=== PATIENT | female | born 1945 | race Caucasian/White ===

== ENCOUNTER 2016-06-01 18:43 | Emergency (ER) | payer OTHER ==
[~2016-06-01 18:43] MED LIST: C25 PO; C5 PO; KLOR-CON M2020 MEQ PO; L20 PO; PHENTERMINE30 MG OR; PRISTIQ50 MG OR; SPIRO50 PO; X5 PO
[2016-06-01 19:26] LABS: BASOPHILS ABSOLUTE 0.05 10/3/uL (0.0-0.16); EOSINOPHILS 4.9 %; EOSINOPHILS ABSOLUTE 0.24 10/3/uL (0.0-0.53); HEMOGLOBIN 14.2 g/dL (12.0-16.0); IMMATURE GRANULOCYTES 0.2 %; IMMATURE GRANULOCYTES ABSOLUTE 0.01 10/3/uL (0.0-0.11); LYMPHOCYTES 46.9 %; LYMPHOCYTES ABSOLUTE 2.29 10/3/uL (0.67-4.30); MEAN CORPUS HGB CONC 32.8 g/dL (32.0-36.0); MEAN CORPUSCULAR HEMOGLOB 33.3 pg (26.0-34.0); MEAN PLATELET VOLUME 10.3 fL (9.2-13.0); MONOCYTES 6.8 %; MONOCYTES ABSOLUTE 0.33 10/3/uL (0.21-1.20); NEUTROPHILS 40.2 %; NEUTROPHILS ABSOLUTE 1.96 10/3/uL (2.02-8.40); PLATELET COUNT 204 10/3/uL (150-400); RBC DISTRIBUTION WIDTH 12.7 % (12.0-16.0); RED CELL COUNT 4.26 10/6/uL (4.0-5.6)
[2016-06-01 19:27] LABS: ER CBC TAT 0 Hrs 09 Mins; HEMATOCRIT 43.3 % (36.0-48.0); MANUAL DIFF NO %; MEAN CORPUSCULAR VOLUME 101.6 fL (80-100); WHITE BLOOD CELLS 4.9 10/3/uL (4.5-10.5)
[2016-06-01 19:44] LABS: A/G RATIO 0.9 (0.7-1.9); ALBUMIN 3.6 G/DL (3.5-5.0); ALKALINE PHOSPHATASE 76 U/L (45-117); BUN (BLOOD UREA NITROGEN) 15 MG/DL (6-23); CALCIUM, SERUM 9.1 MG/DL (8.5-10.4); CHLORIDE, SERUM 106 MMOL/L (96-112); CO2 (CARBON DIOXIDE) 27 MMOL/L (24-34); CREATININE 1.08 MG/DL (0.55-1.02); GFR AFRICAN AMERICAN 61 ML/MIN (>=60); GFR NON AFRICAN AMERICAN 52 ML/MIN (>=60); GLOBULIN 4.1 G/DL (2.5-4.1); GLUCOSE, SERUM 148 MG/DL (60-99); POTASSIUM, SERUM 4.4 MMOL/L (3.5-5.3); SGOT(AST) 15 U/L (5-40); SGPT(ALT) 20 U/L (5-65); SODIUM, SERUM 140 MMOL/L (135-148); TOTAL BILIRUBIN 0.2 MG/DL (0-1.2); TOTAL PROTEIN 7.7 G/DL (6.0-8.5)
== END 2016-06-02 02:08 | disposition home or self-care (01) ==
LOC: ER 18:43
PROVIDERS: Emergency Medicine
DX: R06.00 Dyspnea, unspecified (principal); Z85.3 Personal history of malignant neoplasm of breast; Z79.01 Long term (current) use of anticoagulants
CPT/HCPCS: 71020; 71275; 80053; 85025; 87040; 93005; 99285; Q9967

== ENCOUNTER 2016-06-06 13:09 | Inpatient (IN) | payer OTHER ==
--- NOTE | ~2016-06-06 | DS ---
Discharge Summary [facility] [address] [place]. [address] NAME: HAKEEM RAJAN : 47 STATUS : DIS IN PAT#: [id number] AGE: 70 ADM/REG DATE : 06/06/16 MR#: [id number] REPORT SERV DATE: 06/11/16 DICTATED BY: RANI SANDERS DATE: 06/10/16 REPORT STATUS : Draft TRANSCRIBED BY: MODL DATE: 06/10/16 ADMISSION DATE: 06/06/2016 DISCHARGE DATE: 06/10/2016 The patient is a 70-year-old female with a history of hypertension, morbid obesity, CKD stage 3, who was a direct admit from her primary care's office for worsening shortness of breath. For further details, please refer to H and P dictated by Dr. Sanders on 06/06/2016. HOSPITAL COURSE: Upon presentation to the hospital, the patient was admitted on the Hospitalist Service. The patient had an extensive cardiac workup, which included transthoracic echocardiography and myocardial perfusion stress test. Both studies were normal. The patient remained hemodynamically stable. Plan was to discharge patient on 06/08/2016, however, the patient was noted to acutely have change in mental status. Stat CT scan was negative. Based on history and symptomatology, it was concluded the patient had an absence seizure. She was subsequently started on Keppra 500 mg b.i.d. The patient has remained hemodynamically stable. Given resolution of her presenting symptoms during completion of a cardiac workup which is negative. The patient will be discharged to follow up with her primary care physician. Plan has been discussed with patient who voices understanding and is agreeable with this plan. DISCHARGE DIAGNOSES: 1. Seizure disorder, most likely absence. 2. Acute kidney injury. 3. Altered mental status. 4. Chronic kidney disease stage 3. 5. Morbid obesity. 6. History of anxiety. 7. History of pulmonary embolism. DISCHARGE EXAM: VITAL SIGNS: Blood pressure 110/53, pulse of 56, respirations 17, O2 saturation 96% on room air. GENERAL: The patient sitting in chair, in no acute distress, appears stated age. HEENT: Normocephalic, atraumatic. Extraocular motors intact. Moist oral mucosa. Anicteric sclerae. Pupils round and reactive to light and accommodation. NECK: Full. Trachea midline and symmetric. No thyromegaly is noted. CHEST: Nontender to palpation. CARDIOVASCULAR: Regular rate and rhythm, S1, S2. I did not appreciate any murmurs, rubs, or gallops. LUNGS: Normal breath sounds. Lungs are clear to auscultation bilaterally. ABDOMEN: Obese. Positive bowel sounds. Nontender. Nondistended. EXTREMITIES: Complaining for cyanotic changes, however, no clubbing or edema. DISCHARGE MEDICATIONS: 1. Xanax 1 mg p.o. daily. 2. Atorvastatin 20 mg p.o. daily. 3. Combigan ophthalmic solution 1 drop ophthalmic daily. Discharge Summary [place] [id number] [facility] [place]. [address] NAME: HAKEEM RAJAN : 47 STATUS : DIS IN PAT#: [id number] AGE: 70 ADM/REG DATE : 06/06/16 MR#: [id number] REPORT SERV DATE: 06/11/16 DICTATED BY: RANI SANDERS DATE: 06/10/16 REPORT STATUS : Draft TRANSCRIBED BY: ALPA DATE: 06/10/16 4. Wellbutrin 150 mg p.o. twice a day. 5. Vitamin B12 1500 mg p.o. daily. 6. Celexa 40 mg p.o. daily. 7. Xalatan 1 drop ophthalmic at bedtime. 8. Xarelto 20 mg p.o. daily. 9. Spironolactone 100 mg p.o. twice a day. 10.Keppra 500 mg p.o. twice a day. IMAGING: Brain CT without contrast. Impression, no acute intracranial abnormality. No chronic microvascular white matter ischemic changes. The patient had a transthoracic echo on 06/06/2016, with normal findings. The patient had myocardial perfusion imaging on 06/08/2016 with normal findings. DISPOSITION: The patient will be discharged home. ACTIVITY: As tolerated. DIET: Cardiac diet. Greater than 30 minutes was spent on patient counseling, writing prescription, coordinating discharge, medication reconciliation, dictation of note. MALINDA/ALPA Rani Sanders MD / [id number] CC: MD Taylor Cote M.D.
--- NOTE | ~2016-06-06 | HP ---
History And Physical [place] [address] [place]. [address] NAME: HAKEEM RAJAN : 47 STATUS : ADM IN [facility]#: [id number] AGE: 70 ADM/REG DATE : 06/06/16 MR#: [id number] REPORT SERV DATE: 06/06/16 DICTATED BY: RANI SANDERS DATE: 06/06/16 REPORT STATUS : Draft TRANSCRIBED BY: MODL DATE: 06/06/16 DATE OF ADMISSION: 06/06/2016 HISTORY OF PRESENT ILLNESS: Ms Rajan is a 70-year-old female with a history of hypertension, morbid obesity, CKD stage III, and anxiety disorder who was transferred as a direct admit from her primary care physician's office because of a worsening shortness of breath. The patient states that she has had worsening shortness of breath for the past two weeks and states her symptoms started over a month ago. She noted that she was becoming more dyspneic with performing her activities of daily living. States that symptoms have progressively worsened and states that in the last two weeks that she has had significant shortness of breath with minimal exertion. She also reports that within the past two weeks that she has had a worsening orthopnea, stating that she has had to increase the pillow that she uses from one to three. She denies any chest pain or any palpitations. She does not report any history of paroxysmal nocturnal dyspnea. She also reports a decrease in exercise tolerance stating that she is only able to move a few feet before becoming severely short of breath and has to sit on her walker. She denies any headaches, light lightheadedness, reports occasional dizziness, but with no syncopal episodes. Denies any fevers, chills, or sick contacts. REVIEW OF SYSTEMS: 14-point review of system was performed. All systems were negative except as noted in the HPI. PAST MEDICAL HISTORY: Breast cancer, diagnosed in 2008, recurrent breast cancer in 2010, pulmonary embolism in 2004, anxiety disorder, and depression. PAST SURGICAL HISTORY: 1. Panniculectomy. 2. Hysterectomy. 3. Eye surgery. FAMILY HISTORY: Significant for diabetes, coronary artery disease, and asthma. PAST SOCIAL HISTORY: The patient currently lives at home alone. She has a remote smoking history, stating that was she smoked over 40 years ago and states that during the time that she was smoking she was not a heavy smoker. She was just experimenting with tobacco. She denies any illicit drug use. States that alcohol use, she used wine on recommendation of her physician, but has since stopped all alcohol use. ALLERGIES: THE PATIENT REPORTS NO KNOWN DRUG ALLERGIES. PHYSICAL EXAMINATION: VITAL SIGNS: On presentation, blood pressure 167/74 with a pulse of 79, respirations 20, O2 saturation 98% on 2 L nasal cannula, temperature 97.4. GENERAL: The patient is lying in bed. Appears morbidly obese. In no acute distress. HEENT: Normocephalic, atraumatic. Extraocular motors intact. Oral mucosa moist. History And Physical [address] [address] NAME: HAKEEM RAJAN : 47 STATUS : ADM IN [facility]#: [id number] AGE: 70 ADM/REG DATE : 06/06/16 MR#: [id number] REPORT SERV DATE: 06/06/16 DICTATED BY: RANI SANDERS DATE: 06/06/16 REPORT STATUS : Draft TRANSCRIBED BY: ALPA DATE: 06/06/16 NECK: Full neck. Trachea midline and symmetric. No JVD noted. CHEST: Nontender to palpation. CARDIOVASCULAR: Regular rate and rhythm. S1, S2. I do not appreciate any murmurs. LUNGS: Anterior lung patel are clear to auscultation bilaterally given the patient's body habitus and having difficulty sitting up for proper lung exam. ABDOMEN: Obese, nontender, nondistended. EXTREMITIES: No edema, no clubbing noted. LABS: No labs available at this time. ASSESSMENT AND PLAN: 1. Congestive heart failure. The patient has symptoms concerning for congestive heart failure. She also has a history of obstructive sleep apnea, has not been able to get a CPAP which may be the etiology of her clinical picture consistent with heart failure. We will start the patient on IV Lasix. We will obtain a TTE, order BNP, and other labs. We will order a stress test to evaluate her severe dyspnea. 2. Hypertension, uncontrolled. We will start the patient on lisinopril 10 mg p.o. daily. 3. Morbid obesity. Body mass index of 53.8, we will monitor. 4. Chronic kidney disease stage III, stable. 5. Anxiety disorder, stable after home medications. We will continue home medications this admission. 6. Depression, stable. Continue home medications. 7. A history of pulmonary embolism, currently on Xarelto. We will continue medications. MALINDA/ALPA Rani Sanders MD / [id number] CC: MD Taylor Cote M.D.
[2016-06-06] MEDS ORDERED: XARELTO20 MG PO (14:29)
[2016-06-06] MEDS ORDERED: SPIR100 PO (14:29)
[2016-06-06] MEDS ORDERED: XANAX1 MG PO (14:30)
[2016-06-06] MEDS ORDERED: 8 HOUR650 MG PO (14:31)
[2016-06-06] MEDS ORDERED: CELEXA40 MG PO (14:32)
[2016-06-06] MEDS ORDERED: CYANO1000T PO (14:32)
[2016-06-06] MEDS ORDERED: WELLSR150 PO (14:32)
[2016-06-06] MEDS ORDERED: PROAIR HFA PO (14:33)
[2016-06-06] MEDS ORDERED: LIPITOR20 PO (14:33)
[2016-06-06] MEDS ORDERED: COMBIGAN0.2 MG/0.5 OPH (14:34)
[2016-06-06] MEDS ORDERED: FASLODEX IM (14:34)
[2016-06-06] MEDS ORDERED: XALAT OPH (14:34)
[2016-06-06] MEDS ORDERED: SYMBICORT 160/41 INH PO (14:48)
[2016-06-06 18:05] LABS: BASOPHILS ABSOLUTE 0.05 10/3/uL (0.0-0.16); EOSINOPHILS 4.3 %; EOSINOPHILS ABSOLUTE 0.22 10/3/uL (0.0-0.53); HEMATOCRIT 39.5 % (36.0-48.0); HEMOGLOBIN 12.7 g/dL (12.0-16.0); LYMPHOCYTES 51.8 %; LYMPHOCYTES ABSOLUTE 2.64 10/3/uL (0.67-4.30); MEAN CORPUS HGB CONC 32.2 g/dL (32.0-36.0); MEAN CORPUSCULAR HEMOGLOB 32.2 pg (26.0-34.0); MEAN CORPUSCULAR VOLUME 100.3 fL (80-100); MEAN PLATELET VOLUME 9.7 fL (9.2-13.0); MONOCYTES 7.5 %; MONOCYTES ABSOLUTE 0.38 10/3/uL (0.21-1.20); NEUTROPHILS 35.4 %; NEUTROPHILS ABSOLUTE 1.81 10/3/uL (2.02-8.40); PLATELET COUNT 169 10/3/uL (150-400); RBC DISTRIBUTION WIDTH 12.5 % (12.0-16.0); RED CELL COUNT 3.94 10/6/uL (4.0-5.6); WHITE BLOOD CELLS 5.1 10/3/uL (4.5-10.5)
[2016-06-06 18:08] LABS: MANUAL DIFF NO %
[2016-06-06 18:24] LABS: B NATRIURETIC PEPTIDE (BNP) 9.1 PG/ML (< 100.0)
[2016-06-06 18:32] LABS: A/G RATIO 1.1 (0.7-1.9); ALBUMIN 3.4 G/DL (3.5-5.0); ALKALINE PHOSPHATASE 71 U/L (45-117); BUN (BLOOD UREA NITROGEN) 15 MG/DL (6-23); CALCIUM, SERUM 8.8 MG/DL (8.5-10.4); CHLORIDE, SERUM 105 MMOL/L (96-112); CO2 (CARBON DIOXIDE) 30 MMOL/L (24-34); CREATININE 1.07 MG/DL (0.55-1.02); FERRITIN 73 NG/ML (8-252); FREE T4 0.82 NG/DL (0.76-1.46); GFR AFRICAN AMERICAN 61 ML/MIN (>=60); GFR NON AFRICAN AMERICAN 53 ML/MIN (>=60); GLUCOSE, SERUM 124 MG/DL (60-99); IRON BINDING CAPACITY 375 MCG/DL (225-410); IRON, SERUM 70 MCG/DL (35-150); PHOSPHORUS, SERUM 3.6 MG/DL (2.5-4.5); SGOT(AST) 9 U/L (5-40); SGPT(ALT) 15 U/L (5-65); SODIUM, SERUM 143 MMOL/L (135-148); TOTAL BILIRUBIN 0.3 MG/DL (0-1.2); TOTAL PROTEIN 6.6 G/DL (6.0-8.5)
[2016-06-06 18:35] LABS: GLOBULIN 3.2 G/DL (2.5-4.1)
[2016-06-06 21:10] LABS: GLYCOHEMOGLOBIN (HbA1c) 6.1 % (4.7-6.1)
[2016-06-07 05:44] LABS: BASOPHILS 0.7 %; BASOPHILS ABSOLUTE 0.04 10/3/uL (0.0-0.16); EOSINOPHILS 4.4 %; EOSINOPHILS ABSOLUTE 0.25 10/3/uL (0.0-0.53); HEMATOCRIT 40.1 % (36.0-48.0); HEMOGLOBIN 13.1 g/dL (12.0-16.0); LYMPHOCYTES 47.2 %; LYMPHOCYTES ABSOLUTE 2.66 10/3/uL (0.67-4.30); MEAN CORPUS HGB CONC 32.7 g/dL (32.0-36.0); MEAN CORPUSCULAR HEMOGLOB 32.8 pg (26.0-34.0); MEAN CORPUSCULAR VOLUME 100.5 fL (80-100); MEAN PLATELET VOLUME 10.4 fL (9.2-13.0); MONOCYTES 8.5 %; MONOCYTES ABSOLUTE 0.48 10/3/uL (0.21-1.20); NEUTROPHILS 39.2 %; NEUTROPHILS ABSOLUTE 2.21 10/3/uL (2.02-8.40); PLATELET COUNT 194 10/3/uL (150-400); RBC DISTRIBUTION WIDTH 12.7 % (12.0-16.0); RED CELL COUNT 3.99 10/6/uL (4.0-5.6); WHITE BLOOD CELLS 5.6 10/3/uL (4.5-10.5)
[2016-06-07 05:52] LABS: MANUAL DIFF NO %
[2016-06-07 07:32] LABS: ALBUMIN 3.4 G/DL (3.5-5.0); BUN (BLOOD UREA NITROGEN) 15 MG/DL (6-23); CHLORIDE, SERUM 101 MMOL/L (96-112); CO2 (CARBON DIOXIDE) 30 MMOL/L (24-34); GLUCOSE, SERUM 115 MG/DL (60-99); POTASSIUM, SERUM 3.9 MMOL/L (3.5-5.3); SODIUM, SERUM 141 MMOL/L (135-148)
[2016-06-07 08:03] LABS: A/G RATIO 0.9 (0.7-1.9); ALKALINE PHOSPHATASE 71 U/L (45-117); CREATININE 1.17 MG/DL (0.55-1.02); GFR AFRICAN AMERICAN 55 ML/MIN (>=60); GFR NON AFRICAN AMERICAN 48 ML/MIN (>=60); GLOBULIN 3.6 G/DL (2.5-4.1); SGOT(AST) 11 U/L (5-40); SGPT(ALT) 15 U/L (5-65); TOTAL BILIRUBIN 0.3 MG/DL (0-1.2)
[2016-06-08 08:02] LABS: BASOPHILS 0.9 %; BASOPHILS ABSOLUTE 0.06 10/3/uL (0.0-0.16); EOSINOPHILS 4.4 %; EOSINOPHILS ABSOLUTE 0.31 10/3/uL (0.0-0.53); HEMATOCRIT 38.6 % (36.0-48.0); HEMOGLOBIN 12.9 g/dL (12.0-16.0); IMMATURE GRANULOCYTES 0.1 %; IMMATURE GRANULOCYTES ABSOLUTE 0.01 10/3/uL (0.0-0.11); LYMPHOCYTES 43.9 %; LYMPHOCYTES ABSOLUTE 3.07 10/3/uL (0.67-4.30); MEAN CORPUS HGB CONC 33.4 g/dL (32.0-36.0); MEAN CORPUSCULAR HEMOGLOB 33.4 pg (26.0-34.0); MEAN PLATELET VOLUME 10.3 fL (9.2-13.0); MONOCYTES 9.2 %; MONOCYTES ABSOLUTE 0.64 10/3/uL (0.21-1.20); NEUTROPHILS 41.5 %; PLATELET COUNT 186 10/3/uL (150-400); RBC DISTRIBUTION WIDTH 12.5 % (12.0-16.0); RED CELL COUNT 3.86 10/6/uL (4.0-5.6)
[2016-06-08 08:08] LABS: MANUAL DIFF NO %
[2016-06-08 08:15] LABS: A/G RATIO 0.8 (0.7-1.9); ALBUMIN 3.1 G/DL (3.5-5.0); ALKALINE PHOSPHATASE 70 U/L (45-117); BUN (BLOOD UREA NITROGEN) 15 MG/DL (6-23); CALCIUM, SERUM 8.7 MG/DL (8.5-10.4); CHLORIDE, SERUM 104 MMOL/L (96-112); CO2 (CARBON DIOXIDE) 28 MMOL/L (24-34); GFR AFRICAN AMERICAN 59 ML/MIN (>=60); GFR NON AFRICAN AMERICAN 51 ML/MIN (>=60); GLOBULIN 3.8 G/DL (2.5-4.1); GLUCOSE, SERUM 142 MG/DL (60-99); POTASSIUM, SERUM 3.9 MMOL/L (3.5-5.3); SGOT(AST) 10 U/L (5-40); SGPT(ALT) 14 U/L (5-65); SODIUM, SERUM 141 MMOL/L (135-148); TOTAL BILIRUBIN 0.3 MG/DL (0-1.2); TOTAL PROTEIN 6.9 G/DL (6.0-8.5)
[2016-06-09 07:20] LABS: BASOPHILS 0.5 %; BASOPHILS ABSOLUTE 0.03 10/3/uL (0.0-0.16); EOSINOPHILS ABSOLUTE 0.26 10/3/uL (0.0-0.53); HEMATOCRIT 37.8 % (36.0-48.0); HEMOGLOBIN 12.7 g/dL (12.0-16.0); IMMATURE GRANULOCYTES 0.2 %; IMMATURE GRANULOCYTES ABSOLUTE 0.01 10/3/uL (0.0-0.11); LYMPHOCYTES 36.5 %; LYMPHOCYTES ABSOLUTE 2.37 10/3/uL (0.67-4.30); MEAN CORPUS HGB CONC 33.6 g/dL (32.0-36.0); MEAN CORPUSCULAR HEMOGLOB 33.6 pg (26.0-34.0); MEAN PLATELET VOLUME 10.2 fL (9.2-13.0); MONOCYTES 8.5 %; MONOCYTES ABSOLUTE 0.55 10/3/uL (0.21-1.20); NEUTROPHILS 50.3 %; NEUTROPHILS ABSOLUTE 3.27 10/3/uL (2.02-8.40); PLATELET COUNT 178 10/3/uL (150-400); RBC DISTRIBUTION WIDTH 12.5 % (12.0-16.0); RED CELL COUNT 3.78 10/6/uL (4.0-5.6); WHITE BLOOD CELLS 6.5 10/3/uL (4.5-10.5)
[2016-06-09 07:26] LABS: MANUAL DIFF NO %
[2016-06-09 07:37] LABS: A/G RATIO 0.8 (0.7-1.9); ALBUMIN 2.9 G/DL (3.5-5.0); ALKALINE PHOSPHATASE 68 U/L (45-117); BUN (BLOOD UREA NITROGEN) 11 MG/DL (6-23); CALCIUM, SERUM 8.7 MG/DL (8.5-10.4); CHLORIDE, SERUM 104 MMOL/L (96-112); CO2 (CARBON DIOXIDE) 27 MMOL/L (24-34); GFR AFRICAN AMERICAN 67 ML/MIN (>=60); GFR NON AFRICAN AMERICAN 57 ML/MIN (>=60); GLOBULIN 3.7 G/DL (2.5-4.1); GLUCOSE, SERUM 118 MG/DL (60-99); SGOT(AST) 7 U/L (5-40); SGPT(ALT) 12 U/L (5-65); SODIUM, SERUM 140 MMOL/L (135-148); TOTAL BILIRUBIN 0.4 MG/DL (0-1.2); TOTAL PROTEIN 6.6 G/DL (6.0-8.5)
[2016-06-10 05:49] LABS: HEMATOCRIT 38.3 % (36.0-48.0); HEMOGLOBIN 12.9 g/dL (12.0-16.0); MEAN CORPUS HGB CONC 33.7 g/dL (32.0-36.0); MEAN CORPUSCULAR VOLUME 101.1 fL (80-100); MEAN PLATELET VOLUME 10.6 fL (9.2-13.0); PLATELET COUNT 189 10/3/uL (150-400); RBC DISTRIBUTION WIDTH 12.5 % (12.0-16.0); RED CELL COUNT 3.79 10/6/uL (4.0-5.6)
[2016-06-10 05:50] LABS: MANUAL DIFF YES %
[2016-06-10 06:19] LABS: EOSINOPHILS 1 %; EOSINOPHILS ABSOLUTE (CALC) 0.07 10/3/uL (0.0-0.53); LYMPHOCYTES 27 %; LYMPHOCYTES ABSOLUTE (CALC) 1.89 10/3/uL (0.67-4.30); MACROCYTES 1+ (5-10/OIF) (0-5/OIF); MONOCYTES 5 %; MONOCYTES ABSOLUTE (CALC) 0.35 10/3/uL (0.21-1.20); NEUTROPHILS ABSOLUTE (CALC) 4.69 10/3/uL (2.02-8.40); PLATELET ESTIMATE ADQ (ADEQUATE); SEGMENTED NEUTROPHIL (0) 67 %; TOTAL NUCLEATED CELLS 100
[2016-06-10 08:38] LABS: A/G RATIO 0.9 (0.7-1.9); ALKALINE PHOSPHATASE 69 U/L (45-117); BUN (BLOOD UREA NITROGEN) 13 MG/DL (6-23); CALCIUM, SERUM 8.7 MG/DL (8.5-10.4); CHLORIDE, SERUM 105 MMOL/L (96-112); CO2 (CARBON DIOXIDE) 24 MMOL/L (24-34); CREATININE 0.96 MG/DL (0.55-1.02); GFR AFRICAN AMERICAN 70 ML/MIN (>=60); GFR NON AFRICAN AMERICAN 60 ML/MIN (>=60); GLOBULIN 3.5 G/DL (2.5-4.1); GLUCOSE, SERUM 116 MG/DL (60-99); POTASSIUM, SERUM 4.6 MMOL/L (3.5-5.3); SGOT(AST) 10 U/L (5-40); SGPT(ALT) 11 U/L (5-65); SODIUM, SERUM 142 MMOL/L (135-148); TOTAL BILIRUBIN 0.3 MG/DL (0-1.2); TOTAL PROTEIN 6.5 G/DL (6.0-8.5)
[2016-06-10] MEDS ORDERED: KEPPRA500 PO (10:25)
== END 2016-06-10 12:00 | disposition home or self-care (01) | DRG 292 ==
LOC: 2SO 13:09
PROVIDERS: Hospitalist
DX: I13.0 Hypertensive heart and chronic kidney disease with heart failure and stage 1 through stage 4 chronic kidney disease, or unspecified chronic kidney disease (principal); N17.9 Acute kidney failure, unspecified; I50.32 Chronic diastolic (congestive) heart failure; Z68.43 Body mass index [BMI] 50.0-59.9, adult; G40.909 Epilepsy, unspecified, not intractable, without status epilepticus; E66.01 Morbid (severe) obesity due to excess calories; N18.3 Chronic kidney disease, stage 3 (moderate); F41.9 Anxiety disorder, unspecified; F32.9 Major depressive disorder, single episode, unspecified; I25.10 Atherosclerotic heart disease of native coronary artery without angina pectoris; G47.33 Obstructive sleep apnea (adult) (pediatric); Z87.891 Personal history of nicotine dependence; Z86.711 Personal history of pulmonary embolism; Z85.3 Personal history of malignant neoplasm of breast; Z98.890 Other specified postprocedural states; Z83.3 Family history of diabetes mellitus; Z82.5 Family history of asthma and other chronic lower respiratory diseases
CPT/HCPCS: 70450; 71020; 78452; 80053; 82728; 82962; 83036; 83540; 83550; 83735; 83880; 84100; 84439; 84443; 85025; 93005; 93017; 94640; 97162-GP; A9270-GY; A9502; C8929; G8978-CK-GP; G8979-CJ-GP; J0153; Q9957